=== PATIENT | male | born 1945 | race Caucasian/White ===

== ENCOUNTER 2019-11-25 19:57 | Inpatient (IN) | payer OTHER ==
[~2019-11-25] VITALS: Ht 182.9 cm; Wt 85.3 kg
--- NOTE | ~2019-11-25 | EKG ---
[place] [address] ELECTROCARDIOGRAM REPORT Name: ANGEL,JANET Plascencia Room: [address] ADM IN .R.#: [id number] Admission: 11/25/19 Attend Phys: Yao camacho Sa Discharge: Date of : 49 Date of Service: 11/25/192004 Report #: [id number] THIS REPORT FOR: cc: JUANA - Cheryl family physician/PCP FAM - No family physician/PCP Marianna Cabral MD ~ THIS REPORT FOR: //name// [facility] ED Test Date: 2019-11-25 Test Time: 20:05:40 Pat Name: JANET ORTIZ Department: Room: [facility] Gender: M Rippler: LARRY : 1945 Requested By: Maria Alejandra Springer Order Number: [id number] MD: Measurements Intervals [place] Rate: 87 P: 0 WA: 171 QRS: -73 QRSD: 95 T: 63 QT: 374 QTc: 450 Interpretive Statements Sinus rhythm Left anterior fascicular block Probable RVH w/ secondary repol abnormality No previous ECG available for comparison [email or web address] By: 04 04 Epiphany Epiphany, /LETICIA
[~2019-11-25 19:57] MED LIST: COZAAR 50 MG TA50 M1 PO; LEVEMIR100 UNIT/1 SUBQ; METFORMIN HCL500 MG PO; NEURONTIN 300300 M1 PO; NOVOLOG100 UNIT/1 SUBQ; OMEPRAZOLE20 M1 PO; PHENERGAN 25 MG25 MG PO; PROSCAR 5MG TABL5 MG PO; SIMVASTATIN40 MG PO
[2019-11-25 20:01] VITALS: BP 172/56
[2019-11-25] MEDS ORDERED: ASA81BEC PO (20:11)
[2019-11-25] MEDS ORDERED: TRAZODONE HCL50 MG PO (20:12)
[2019-11-25 20:27] LABS: ABSOLUTE BASOPHILS 0.1 thou/uL (0.0-0.2); ABSOLUTE EOSINOPHILS 0.1 thou/uL (0.0-0.7); ABSOLUTE LYMPHOCYTES 1.1 thou/uL (0.8-5.3); ABSOLUTE MONOCYTES 0.2 thou/uL (0.0-1.2); ABSOLUTE NEUTROPHILS 4.5 thou/uL (1.6-8.1); BASOPHILS 0.9 %; EOSINOPHILS 2.1 %; HEMOGLOBIN 12.2 gm/dL (14.0-18.0); LYMPHOCYTES 18.1 %; MCH 25.9 pg (26.0-34.0); MCV 78.4 fL (80.0-100.0); MONOCYTES 3.1 %; MPV 8.1 fl. (7.2-11.1); NUCLEATED RBCS 0 /100WBC; PLATELET COUNT* 172 thou/uL (150-400); POLYS 75.8 %; RBC 4.71 mil/uL (4.50-6.00); RDW-CV 18.8 % (10.5-14.5); WBC 5.9 thou/uL (4.0-11.0)
[2019-11-25 20:33] LABS: CALCIUM 7.8 mg/dL (8.5-10.1); CREATININE 1.5 mg/dL (0.6-1.3); POTASSIUM 4.1 mmol/L (3.5-5.1)
[2019-11-25 20:37] LABS: PROTIME 10.4 Seconds (9.20-11.50)
[2019-11-25 20:44] LABS: ALBUMIN 3.4 g/dL (3.4-5.0); TOTAL BILIRUBIN 0.3 mg/dL (<0.1-1.0); TOTAL PROTEIN 7.6 g/dL (6.4-8.2)
[2019-11-25 21:05] LABS: INFLUENZA A ANTIGEN Negative (Negative)
[2019-11-25 21:09] LABS: URINE BILIRUBIN NEGATIVE (Negative); URINE BLOOD NEGATIVE (Negative); URINE CLARITY CLEAR; URINE COLOR STRAW; URINE GLUCOSE-RANDOM 3+ (Negative); URINE KETONES NEGATIVE (Negative); URINE LEUKOCYTES-REFLEX NEGATIVE (Negative); URINE NITRITE-REFLEX NEGATIVE (Negative); URINE PROTEIN NEGATIVE (Negative); URINE SPECIFIC GRAVITY 1.015 (1.005-1.030); URINE UROBILINOGEN 0.2 E.U./dl (0.2-1.0)
[2019-11-25 23:19] VITALS: BP 138/100
[2019-11-26] VITALS: BP 136/56
[2019-11-26 04:00] VITALS: BP 133/61
[2019-11-26 07:00] VITALS: BP 138/57; BP 140/94
[2019-11-26] MEDS ORDERED: COLACE100 MG PO (09:50)
[2019-11-26] MEDS ORDERED: JARDIANCE25 MG PO (09:57)
[2019-11-26] MEDS ORDERED: NAMENDA 10 MG T10 MG PO (10:08)
[2019-11-26] MEDS ORDERED: PSYLLIUM HUSK1 GM PO (10:10)
[2019-11-26] MEDS ORDERED: SEROQUEL400 MG PO (10:11)
[2019-11-26] MEDS ORDERED: TYLENOL325 MG PO (10:12)
[2019-11-26] MEDS ORDERED: CARBIDOPA-LEVO1 EA10 PO (10:12)
[2019-11-26] MEDS ORDERED: NYSTATIN100000 UNI SW&SWALLOW (10:13)
[2019-11-26] MEDS ORDERED: ALOGLIPTIN12.5 MG PO (10:15)
[2019-11-26] MEDS ORDERED: VITAMIN D32000 UNIT PO (10:16)
[2019-11-26] MEDS ORDERED: GLUCOSE4 GM PO (10:18)
[2019-11-26 12:35] VITALS: BP 136/56
[2019-11-26 16:00] VITALS: BP 107/55
[2019-11-26 20:00] VITALS: BP 109/64
[2019-11-27] VITALS (7 sets, daily range): BP systolic 108–166; BP diastolic 43–71
[2019-11-27 07:04] LABS: MCH 25.8 pg (26.0-34.0); MCHC 32.6 g/dL (28.0-37.0); MCV 79.1 fL (80.0-100.0); MPV 8.3 fl. (7.2-11.1); RBC 3.79 mil/uL (4.50-6.00); RDW-CV 18.6 % (10.5-14.5); WBC 4.7 thou/uL (4.0-11.0)
[2019-11-27 07:08] LABS: HEMOGLOBIN 9.8 gm/dL (14.0-18.0)
[2019-11-27 07:12] LABS: CALCIUM 7.4 mg/dL (8.5-10.1); CREATININE 1.4 mg/dL (0.6-1.3); POTASSIUM 4.2 mmol/L (3.5-5.1)
[2019-11-28 04:00] VITALS: BP 140/62
[2019-11-28 07:00] VITALS: BP 116/79
[2019-11-28] MEDS ORDERED: TAMIFLU30 MG PO (11:06)
[2019-11-28] MEDS ORDERED: MUCINEX1200 MG PO (11:07)
[2019-11-28] MEDS ORDERED: AZITHROMYCIN500 MG PO (11:09)
[2019-11-28 11:55] VITALS: BP 116/79
[2019-11-28 12:00] VITALS: BP 151/64
[2019-11-28] MEDS ORDERED: PROTONIX40 M2 PO (12:06)
[2019-11-28] MEDS ORDERED: CEFDINIR300 MG PO (12:16)
== END 2019-11-28 13:00 | disposition home or self-care (01) | DRG 871 ==
LOC: M.ERS 19:57 → M.2W 21:24 → M.TBA-ER 21:24 → M.2W 23:25
PROVIDERS: Emergency Medicine; ADMIT Family Medicine
DX: A41.9 Sepsis, unspecified organism (principal); J10.08 Influenza due to other identified influenza virus with other specified pneumonia; J12.9 Viral pneumonia, unspecified; J96.91 Respiratory failure, unspecified with hypoxia; N17.9 Acute kidney failure, unspecified; J44.0 Chronic obstructive pulmonary disease with (acute) lower respiratory infection; N40.0 Benign prostatic hyperplasia without lower urinary tract symptoms; G20 Parkinson's disease; I12.9 Hypertensive chronic kidney disease with stage 1 through stage 4 chronic kidney disease, or unspecified chronic kidney disease; F02.80 Dementia in other diseases classified elsewhere, unspecified severity, without behavioral disturbance, psychotic disturbance, mood disturbance, and anxiety; E11.22 Type 2 diabetes mellitus with diabetic chronic kidney disease; F17.210 Nicotine dependence, cigarettes, uncomplicated; E78.5 Hyperlipidemia, unspecified; N18.3 Chronic kidney disease, stage 3 (moderate); E11.65 Type 2 diabetes mellitus with hyperglycemia; T38.0X5A Adverse effect of glucocorticoids and synthetic analogues, initial encounter; Y92.89 Other specified places as the place of occurrence of the external cause; Z82.49 Family history of ischemic heart disease and other diseases of the circulatory system; Z79.82 Long term (current) use of aspirin; Z79.899 Other long term (current) drug therapy